=== PATIENT | female | born 1995 | race Caucasian/White ===

== ENCOUNTER 2019-04-05 21:08 | Observation (INO) ==
[2019-04-05 21:22] VITALS: BP 140/83
[2019-04-05 21:40] LABS: Bilirubin,Urine Negative (Negative); Blood,Urine Negative (Negative); Clarity,Urine Clear (Clear); Color,Urine Yellow (Yellow); Glucose,Urine (UA) 250 mg/dL (Normal); Ketones,Urine Negative (Negative); Leukocyte Esterase,Urine Negative (Negative); Nitrite,Urine Negative (Negative); PH,Urine 5.5 pH Units (5.0-8.0); Protein,Urine Trace mg/dL (Neg-Trace); Specific Gravity,Urine > 1.030 (1.010-1.025); Urobilinogen,Urine Normal (Normal)
[2019-04-05 21:49] LABS: Amphetamine Screen,Urine Negative ng/mL (Cutoff=1000); Barbiturate Screen,Urine Negative ng/mL (Cutoff=200); Benzodiazepines Screen,Urine Negative ng/mL (Cutoff=200); Cannabinoid Screen,Urine Negative ng/mL (Cutoff = 50); Cocaine Screen,Urine Negative ng/mL (Cutoff= 300); Opiate Screen,Urine Negative ng/mL (Cutoff=300); Phencyclidine Screen,Urine Negative ng/mL (Cutoff=25)
== END 2019-04-05 23:37 | disposition home or self-care (01) ==
LOC: 1NENULAB
PROVIDERS: ADMIT Registered Nurse; ATTEND Registered Nurse

== ENCOUNTER → 2019-04-27 14:45 | Observation (INO) ==
[2019-04-27 10:33] LABS: Basophils % 0.2 %; Eosinophils % 0.2 %; Hematocrit 37.9 % (35.3-44.9); Hemoglobin 12.2 g/dL (11.5-15.4); Immature Granulocytes % 0.7 % (0-4); Lymphocytes # 1.1 K/mcL (0.6-4.6); Lymphocytes % 10.7 %; Mean Corpuscular HGB Conc 32.2 g/dL (31.6-35.5); Mean Corpuscular Hemoglobin 29.9 pg (28.0-33.3); Mean Corpuscular Volume 92.9 fL (83.0-100.0); Mean Platelet Volume 10.1 fL (9.4-12.4); Monocytes # 0.6 K/mcL (0.0-1.3); Monocytes % 5.9 %; Neutrophils # 8.5 K/mcL (1.6-8.9); Platelet Count 226 K/mcL (140-400); Red Blood Count 4.08 M/mcL (3.82-4.97); Red Cell Distribution Width 13.2 % (11.5-14.5); Segmented Neutrophils % 82.3 %; White Blood Count 10.4 K/mcL (4.3-11.1)
[2019-04-27 10:41] LABS: Protein/Creatinine Ratio,Urine 0.22 mg/mg (0.00-0.20)
[2019-04-27 10:42] LABS: Amphetamine Screen,Urine Negative ng/mL (Cutoff=1000); Barbiturate Screen,Urine Negative ng/mL (Cutoff=200); Benzodiazepines Screen,Urine Negative ng/mL (Cutoff=200); Cannabinoid Screen,Urine Negative ng/mL (Cutoff = 50); Cocaine Screen,Urine Negative ng/mL (Cutoff= 300); Opiate Screen,Urine Negative ng/mL (Cutoff=300); Phencyclidine Screen,Urine Negative ng/mL (Cutoff=25)
[2019-04-27 10:53] LABS: Alanine Aminotransferase 27 Units/L (7-52); Aspartate Amino Transferase 17 Units/L (13-39); BUN/Creatinine Ratio 13 (6-26); Blood Urea Nitrogen 7 mg/dL (6-20); Lactate Dehydrogenase 149 Units/L (140-271); Uric Acid 2.5 mg/dL (2.3-7.6); eGFR For African Americans > 60 (> 60); eGFR For Non-African Americans > 60 (> 60)
--- NOTE | 2019-04-27 13:12 | OB/GYN Progress Note ---
Date of Encounter: 04/27/19 Time of Encounter: 13:12 - Assessment and Plan (1) 30 weeks gestation of Current Visit: Yes Status: Acute (2) Dizziness Current Visit: Yes Status: Acute Pt reports dizzy spells are not new. No symptoms now. No other complaints. BP's normal. PI[facility] labs normal. Discharge home. Follow-up next week as scheduled. Subjective - Subjective Principal diagnosis: dizziness Interval history: 23 year-old presenting at 30w6d with c/o a dizzy spell at work around 0800 this am. She report she gets these spells frequently even prior to . When she had the spell this am her coworker checked her blood pressure and dipped her urine. She had a mildly elevated blood pressure and some protein in her urine so she came in for further evaluation. She reports her symptoms resolved spontaneously after 5-10 minutes as usual. No other complaints. No complaints now. Good FM. No leaking, bleeding or cramping. Objective - Exam FHR: category 1 FHR comments: 135 BPM, reactive NST Auscultation: bilateral: normal Abdomen: Present: soft, gravid Uterus: Absent: tenderness Comments: normal reflexes, no clonus - Labs Labs: Abnormal lab results Creatinine 0.52 mg/dL (0.60-1.20) L 04/27/19 10:05 Protein/Creatinin Ratio 0.22 mg/mg (0.00-0.20) H 04/27/19 10:05 Urine Total Protein 19 mg/dL (1-14) H 04/27/19 10:05
== END | disposition home or self-care (01) ==
LOC: 1NENULAB
PROVIDERS: ADMIT Registered Nurse; ATTEND Registered Nurse

== ENCOUNTER 2019-06-19 07:35 | Inpatient (IN) ==
[~2019-06-19 07:35] MED LIST: *HR* Nalbuphine 10 MG/ML AMPUL IVP PRN; Famotidine 20 MG/2 ML VIAL IVP PRN; Metoclopramide 10 MG/2 ML VIAL IVP PRN; Naloxone 0.4 MG/ML INJ IVP PRN; Ondansetron 4 MG/2 ML VIAL IVP PRN
[2019-06-19] MEDS ORDERED: Acetaminophen 325 MG TABLET PO ONE (07:44)
[2019-06-19] MEDS ORDERED: Ringers Solution, Lactated 1,000 ML IVC SCH (07:45)
[2019-06-19 07:48] LABS: Basophils % 0.2 %; Eosinophils % 0.4 %; Hematocrit 41.7 % (35.3-44.9); Hemoglobin 14.3 g/dL (11.5-15.4); Immature Granulocytes % 0.6 % (0-4); Lymphocytes # 1.4 K/mcL (0.6-4.6); Mean Corpuscular HGB Conc 34.3 g/dL (31.6-35.5); Mean Corpuscular Hemoglobin 30.2 pg (28.0-33.3); Mean Corpuscular Volume 88.2 fL (83.0-100.0); Mean Platelet Volume 10.5 fL (9.4-12.4); Monocytes # 0.9 K/mcL (0.0-1.3); Monocytes % 8.7 %; Neutrophils # 7.6 K/mcL (1.6-8.9); Platelet Count 261 K/mcL (140-400); Red Blood Count 4.73 M/mcL (3.82-4.97); Red Cell Distribution Width 13.4 % (11.5-14.5); Segmented Neutrophils % 76.1 %; White Blood Count 9.9 K/mcL (4.3-11.1)
[2019-06-19 08:20] LABS: Alanine Aminotransferase 31 Units/L (7-52); Aspartate Amino Transferase 24 Units/L (13-39); BUN/Creatinine Ratio 12 (6-26); Blood Urea Nitrogen 7 mg/dL (6-20); Lactate Dehydrogenase 181 Units/L (140-271); eGFR For African Americans > 60 (> 60); eGFR For Non-African Americans > 60 (> 60)
[2019-06-19 08:49] LABS: Protein/Creatinine Ratio,Urine 0.55 mg/mg (0.00-0.20)
[2019-06-19] MEDS ORDERED: Oxytocin 20 units/ LR 1000 mL 20 UNIT/1,000 ML BAG IVC SCH (09:00)
[2019-06-19 10:13] LABS: Amphetamine Screen,Urine Negative ng/mL (Cutoff=1000); Barbiturate Screen,Urine Negative ng/mL (Cutoff=200); Benzodiazepines Screen,Urine Negative ng/mL (Cutoff=200); Cannabinoid Screen,Urine Negative ng/mL (Cutoff = 50); Cocaine Screen,Urine Negative ng/mL (Cutoff= 300); Opiate Screen,Urine Negative ng/mL (Cutoff=300); Phencyclidine Screen,Urine Negative ng/mL (Cutoff=25)
[2019-06-19] MEDS ORDERED: *HR* FentaNYL (PF) 100 MCG/2 ML VIAL EP ONE (10:48)
[2019-06-19] MEDS ORDERED: Bupivacaine-MPF 0.25% 10 ML VIAL EP ONE (10:48)
[2019-06-19] MEDS ORDERED: Epidural Premix (fent/bupiv) 110 ML EP SCH (11:00)
[2019-06-19] MEDS ORDERED: Chloroprocaine/PF 20 ML VIAL INFILT ONE (22:18)
[2019-06-19] MEDS ORDERED: Ringers Solution, Lactated 1,000 ML ONE (22:18)
[2019-06-19] MEDS ORDERED: *HR* FentaNYL (PF) 100 MCG/2 ML VIAL ONE (22:18)
[2019-06-19] MEDS ORDERED: *HR* Oxytocin 10 UNIT/ML VIAL IM ONE ×2 (22:18)
[2019-06-19] MEDS ORDERED: *HR* Morphine Sulfate/PF 10 MG/10 ML AMPUL ONE (22:19)
[2019-06-19] MEDS ORDERED: Morphine Sulfate 2 MG/ML SYRINGE IVP PRN (23:04)
[2019-06-19] MEDS ORDERED: Ibuprofen 400 MG TABLET PO PRN (23:04)
[2019-06-19] MEDS ORDERED: *HR* HYDROmorphone (PF) 1 MG/ML SYRINGE IVP PRN (23:04)
[2019-06-19] MEDS ORDERED: *HR* OxyCODONE/APAP 5/325 TABLET PO PRN (23:04)
[2019-06-19] MEDS ORDERED: Naloxone 0.4 MG/ML INJ IVP PRN (23:04)
[2019-06-19] MEDS ORDERED: Acetaminophen IV 1,000 MG/100 ML INFUS..BTL IVPB ONE (23:10)
[2019-06-20] MEDS ORDERED: Oxytocin 20 units/ LR 1000 mL 20 UNIT/1,000 ML BAG IVC SCH (01:09)
[2019-06-20] MEDS ORDERED: Metoclopramide 10 MG/2 ML VIAL IVP PRN (01:09)
[2019-06-20] MEDS ORDERED: Ondansetron 4 MG/2 ML VIAL IVP PRN (01:09)
[2019-06-20] MEDS ORDERED: Rho Immune Globulin 1,500 UNIT SYRINGE IM ONE (01:09)
[2019-06-20] MEDS ORDERED: Simethicone 80 MG TAB.CHEW PO PRN (01:09)
[2019-06-20] MEDS ORDERED: Sennosides 8.6 MG TABLET PO PRN (01:09)
[2019-06-20] MEDS: Ibuprofen 600 MG TABLET PO PRN ×3 (03:59→20:19)
[2019-06-20] MEDS: *HR* OxyCODONE/APAP 5/325 TABLET PO PRN ×4 (05:33→22:34)
[2019-06-20 06:49] LABS: Basophils % 0.1 %; Hematocrit 34.8 % (35.3-44.9); Immature Granulocytes % 0.3 % (0-4); Lymphocytes # 1.2 K/mcL (0.6-4.6); Lymphocytes % 8.5 %; Mean Corpuscular HGB Conc 32.5 g/dL (31.6-35.5); Mean Corpuscular Hemoglobin 30.1 pg (28.0-33.3); Mean Corpuscular Volume 92.6 fL (83.0-100.0); Mean Platelet Volume 10.9 fL (9.4-12.4); Monocytes # 0.8 K/mcL (0.0-1.3); Monocytes % 5.8 %; Neutrophils # 12.3 K/mcL (1.6-8.9); Platelet Count 209 K/mcL (140-400); Red Blood Count 3.76 M/mcL (3.82-4.97); Red Cell Distribution Width 13.4 % (11.5-14.5); Segmented Neutrophils % 85.3 %; White Blood Count 14.5 K/mcL (4.3-11.1)
[2019-06-20 06:50] LABS: Hemoglobin 11.3 g/dL (11.5-15.4)
[2019-06-20] MEDS: metroNIDAZOLE 500 MG TABLET PO SCH ×4 (08:02→21:38)
[2019-06-20] MEDS: Prenatal Vit/FA 1 EACH TABLET PO SCH (08:03)
[2019-06-20] MEDS ORDERED: NON-FORMULARY MEDICATION 1 EACH EACH (Prenatal Formula Tablet 1 TAB) PO SCH (09:00)
[2019-06-20] MEDS: cephALEXin 500 MG CAPSULE PO SCH ×3 (11:46→20:20)
[2019-06-21] MEDS: Ibuprofen 600 MG TABLET PO PRN ×3 (02:23→15:00)
[2019-06-21] MEDS: *HR* OxyCODONE/APAP 5/325 TABLET PO PRN ×3 (05:13→17:21)
[2019-06-21] MEDS: cephALEXin 500 MG CAPSULE PO SCH ×2 (08:56→15:01)
[2019-06-21] MEDS: Prenatal Vit/FA 1 EACH TABLET PO SCH (08:57)
[2019-06-21] MEDS: metroNIDAZOLE 500 MG TABLET PO SCH ×2 (08:57→15:00)
[2019-06-21 15:14] VITALS: BP 133/92
== END 2019-06-21 17:23 | disposition home or self-care (01) | DRG 788 ==
LOC: 1NENULAB → 1NENUOBS 06-20 01:09
PROVIDERS: ADMIT Student in an Organized Health Care Education/Training Program; ATTEND Student in an Organized Health Care Education/Training Program